=== PATIENT | female | born 1985 | race Caucasian/White ===

== ENCOUNTER 2022-04-16 17:39 | Emergency (ER) | payer OTHER ==
[~2022-04-16 17:39] MED LIST: BENADRYL 25MG C25 MG PO; CLARITIN10 MG PO; MOMETASONE FURO45 G1 TP; PEPCID20 MG PO; PREDNISONE50 MG PO; PRENATAL VITAM1 EAC8 PO; SUBUTEX 8 MG TAB8 MG PO
[2022-04-16] MEDS ORDERED: DOXYCYCLINE HY100 MG PO (18:47)
== END 2022-04-16 18:59 | disposition home or self-care (01) ==
LOC: ER1 17:39
DX: L02.211 Cutaneous abscess of abdominal wall (principal); F17.210 Nicotine dependence, cigarettes, uncomplicated
CPT/HCPCS: 10060; 99283

== ENCOUNTER → 2022-05-10 | Outpatient (CLI) | payer OTHER ==
[~2022-05-10] MED LIST changes: +DOXYCYCLINE HY100 MG PO
== END ==
LOC: KOH-I 15:25
DX: R22.32 Localized swelling, mass and lump, left upper limb (principal)
CPT/HCPCS: 73130